=== PATIENT | male | born 1965 | race Caucasian/White ===

== ENCOUNTER 2016-10-09 14:58 | Inpatient (IN) | payer MEDICARE ==
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
[2016-10-09 17:09] LABS: % BASOPHILS 0.5 % (0.0-2.0); % EOSINOPHILS 2.7 % (0.0-5.0); % LYMPHOCYTES 38.7 % (20.0-50.0); % MONOCYTES 12.3 % (2.0-10.0); % NEUTROPHILS 45.8 % (40.0-80.0); HEMATOCRIT 43.6 % (39.0-49.0); HEMOGLOBIN 14.5 gm/dL (13.2-17.3); MEAN CELL VOLUME 88.3 fl (80-99); MEAN CORPUSCULAR HEMOGLOBIN 29.3 pg (26.0-30.0); MEAN CORPUSCULAR HGB CONC 33.2 pg (28.0-36.0); MEAN PLATELET VOLUME 8.2 fl; PLATELET COUNT 193 Th/cmm (150-400); RED BLOOD COUNT 4.94 Mil/cmm (4.30-5.70); RED CELL DISTRIBUTION WIDTH 12.2 % (11.5-20.0); WHITE BLOOD COUNT 8.6 Th/cmm (4.8-10.8)
[2016-10-09 17:28] LABS: ACETAMINOPHEN < 10.0 ug/mL (10.0-30.0); ALB/GLOB RATIO 1.4 (1.0-1.8); ALKALINE PHOSPHATASE 146 U/L (34-104); ANION GAP 9.2 (7.0-16.0); BILIRUBIN,TOTAL 0.5 mg/dL (0.3-1.0); BUN - UREA NITROGEN 9 mg/dL (7-25); CALCIUM SERUM 9.5 mg/dL (8.6-10.3); CARBON DIOXIDE 30.8 mEq/L (21.0-31.0); CHLORIDE 100 mEq/L (98-107); CHOLESTEROL 139 mg/dL (<200); CREATININE - SERUM 0.5 mg/dL (0.7-1.3); GLUCOSE 180 mg/dL (70-105); SGOT 55 U/L (13-39); SGPT/ALT 64 U/L (7-52); SODIUM SERUM 136 mEq/L (136-145); TRIGLYCERIDES 237 mg/dL (<150)
[2016-10-09 18:08] LABS: URINE BILIRUBIN NEGATIVE (NEGATIVE); URINE BLOOD NEGATIVE (NEGATIVE); URINE GLUCOSE (UA) 100 mg/dL (NEGATIVE); URINE KETONE NEGATIVE (NEGATIVE); URINE PH 6.5 (4.6 - 8.0); URINE PROTEIN NEGATIVE (NEGATIVE); URINE UROBILINOGEN 0.2 E.U./dL (0.2 - 1.0)
[2016-10-09 18:10] LABS: URINE COLOR YELLOW
[2016-10-09 18:11] LABS: URINE BACTERIA NONE SEEN /hpf (NONE SEEN); URINE EPITHELIAL CELLS NONE SEEN /lpf (FEW); URINE RBC NONE SEEN /hpf (0-5); URINE WBC NONE SEEN /hpf (0-5)
[2016-10-09 18:16] LABS: AMPHETAMINE URINE NEGATIVE (NEGATIVE); BARBITURATES URINE NEGATIVE (NEGATIVE); METHADONE URINE NEGATIVE (NEGATIVE)
[2016-10-09 20:07] VITALS: BP 118/85
[2016-10-09] MEDS ORDERED: Fleet Enema 135 mL RC PRN (20:56)
[2016-10-09] MEDS ORDERED: SIMETHICONE 40 MG/0.6 ML BOTTLE PO PRN (20:56)
[2016-10-09] MEDS ORDERED: Hydrocodone/APAP 5mg/325mg Tab PO PRN (20:56)
[2016-10-10] MEDS: Atorvastatin Calcium 10 MG TAB PO SCH ×2 (05:55→21:21)
[2016-10-10] MEDS: INSULIN ASPART, RECOMBINANT 100 UNITS/ML SUBQ SCH ×4 (06:43→21:27)
[2016-10-10] MEDS: INSULIN HUMAN ISOPHANE (NPH) 100 UNITS/ML SUBQ SCH ×2 (08:36→17:28)
[2016-10-10] MEDS: Pantoprazole 40 mg EC Tab PO SCH (08:38)
[2016-10-10] MEDS: Levothyroxine 0.075 Mg Tab PO SCH (08:38)
[2016-10-10] MEDS: Aspirin 81mg Chewable Tab PO SCH (08:39)
[2016-10-10] MEDS ORDERED: INSULIN HUMAN ISOPHANE (NPH) 100 UNITS/ML SUBQ SCH (09:00)
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
[2016-10-11] MEDS: INSULIN HUMAN ISOPHANE (NPH) 100 UNITS/ML SUBQ SCH ×2 (06:39→17:40)
[2016-10-11] MEDS: INSULIN ASPART, RECOMBINANT 100 UNITS/ML SUBQ SCH ×4 (06:39→21:54)
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
[2016-10-11] MEDS: Pantoprazole 40 mg EC Tab PO SCH (09:04)
[2016-10-11] MEDS: Aspirin 81mg Chewable Tab PO SCH (09:04)
[2016-10-11] MEDS: Levothyroxine 0.075 Mg Tab PO SCH (09:07)
--- NOTE | 2016-10-11 19:30 | Progress Notes ---
DATE: 10/11/2016 SUBJECTIVE: Staff was spoken to. The patient is interviewed. Mood is noted to be depressed. Affect is constricted. The patient is isolative and withdrawn. Insight and judgment are noted to be still impaired. Coping skills are noted to be poor. The patient's main concern at this time is noted to be shaking of the legs and then pain. ASSESSMENT: The patient is still depressed. PLAN: To continue the patient with Cymbalta and follow the patient with supportive therapy. JOB# [id number]
[2016-10-11] MEDS: Atorvastatin Calcium 10 MG TAB PO SCH (21:06)
[2016-10-12] MEDS: INSULIN ASPART, RECOMBINANT 100 UNITS/ML SUBQ SCH ×4 (07:07→21:05)
[2016-10-12] MEDS: INSULIN HUMAN ISOPHANE (NPH) 100 UNITS/ML SUBQ SCH ×2 (07:12→18:04)
[2016-10-12] MEDS: Levothyroxine 0.075 Mg Tab PO SCH (09:10)
[2016-10-12] MEDS: Aspirin 81mg Chewable Tab PO SCH (09:11)
[2016-10-12] MEDS: Pantoprazole 40 mg EC Tab PO SCH (09:11)
[2016-10-12] MEDS: Menthol/Zinc Oxide Oint 113gm Tube TP PRN (09:11)
[2016-10-12] MEDS: Atorvastatin Calcium 10 MG TAB PO SCH (21:08)
--- NOTE | 2016-10-12 21:22 | Progress Notes ---
DATE: 10/12/2016 TIME PATIENT SEEN: 12:30 p.m. SUBJECTIVE: Staff was spoken to. The patient is interviewed. Mood is noted to be irritable. Affect is constricted. The patient is demanding more and more pain medications. Insight and judgment at this time are noted to be still impaired. Impulse control seems to be poor. The patient is currently on duloxetine 60 mg on a daily basis and has been able to tolerate the medications. The patient is also on Seroquel 300 mg at night time. Since the patient has been still having hallucinations and mood swings, it is decided to increase the dose on the Seroquel to 400 mg at night time and I encouraged the patient to verbalize the concerns rather than to act out . JOB# [id number]
[2016-10-13] MEDS: INSULIN ASPART, RECOMBINANT 100 UNITS/ML SUBQ SCH ×4 (06:41→20:44)
[2016-10-13] MEDS: Aspirin 81mg Chewable Tab PO SCH (10:16)
[2016-10-13] MEDS: Pantoprazole 40 mg EC Tab PO SCH (10:25)
[2016-10-13] MEDS: INSULIN HUMAN ISOPHANE (NPH) 100 UNITS/ML SUBQ SCH ×2 (10:28→17:28)
[2016-10-13] MEDS: Levothyroxine 0.075 Mg Tab PO SCH (10:35)
[2016-10-13] MEDS ORDERED: Hydrocodone/APAP 5mg/325mg Tab PO PRN (11:55)
[2016-10-13] MEDS: Atorvastatin Calcium 10 MG TAB PO SCH (20:49)
--- NOTE | 2016-10-13 21:20 | Progress Notes ---
DATE: 10/13/2016 SUBJECTIVE: Staff was spoken to. The patient is interviewed. Mood is noted to be irritable. Affect is constricted. The patient has been going a tangent and is mentioning that he has climbed , and the patient is going on and on. Insight and judgment at this time are noted to be still impaired. Impulse control seems to be limited. Coping skills are also noted to be limited. The patient has been having acute mood swings and the patient is mainly focused on too much on the pain medications. ASSESSMENT: The patient is still having acute mood swings and planning to increase the dose on the Depakote to 250 mg 3 times a day and give the Depakote level tomorrow and follow the patient up. Please note that the patient has no place to return to at this time. JOB# [id number]
[2016-10-14] MEDS: INSULIN ASPART, RECOMBINANT 100 UNITS/ML SUBQ SCH ×4 (06:56→21:00)
[2016-10-14] MEDS: Pantoprazole 40 mg EC Tab PO SCH (09:38)
[2016-10-14] MEDS: Aspirin 81mg Chewable Tab PO SCH (09:39)
[2016-10-14] MEDS: INSULIN HUMAN ISOPHANE (NPH) 100 UNITS/ML SUBQ SCH ×2 (09:49→17:55)
[2016-10-14] MEDS: Levothyroxine 0.075 Mg Tab PO SCH (17:03)
[2016-10-14] MEDS: Atorvastatin Calcium 10 MG TAB PO SCH (21:00)
[2016-10-14] MEDS: Menthol/Zinc Oxide Oint 113gm Tube TP PRN (23:00)
--- NOTE | 2016-10-15 03:26 | Progress Notes ---
DATE: 10/14/2016 PSYCHIATRIC PROGRESS NOTE SUBJECTIVE: Staff was spoken to. The patient is interviewed. Mood is noted to be irritable. Affect is constricted. The patient is still complaining of pain and inability to walk. The patient is currently on hydrocodone as well as the hydromorphone and the patient has been still insisting that camping and legs are hurting. The patient's insight and judgment at this time are noted to be still impaired. The patient has been sleeping most of the time and the patient has been having difficult time to get up. The patient's mood is noted to be still depressed. ASSESSMENT: The patient is still depressed. PLAN: To continue patient with the supportive therapy, encouraged the patient to verbalize the concerns rather than to act out. JOB# [id number]
[2016-10-15] MEDS: INSULIN ASPART, RECOMBINANT 100 UNITS/ML SUBQ SCH ×4 (06:33→21:40)
[2016-10-15] MEDS: INSULIN HUMAN ISOPHANE (NPH) 100 UNITS/ML SUBQ SCH (07:06)
[2016-10-15] MEDS: Pantoprazole 40 mg EC Tab PO SCH (10:29)
[2016-10-15] MEDS: Levothyroxine 0.075 Mg Tab PO SCH (10:31)
[2016-10-15] MEDS: Aspirin 81mg Chewable Tab PO SCH (10:32)
[2016-10-15] MEDS: Atorvastatin Calcium 10 MG TAB PO SCH (20:36)
--- NOTE | 2016-10-16 01:16 | Progress Notes ---
DATE: 10/15/2016 PSYCHIATRIC PROGRESS NOTE SUBJECTIVE: Staff was spoken to. The patient is interviewed. Mood is noted to be irritable. Affect is constricted. The patient is stating that he needs to be on a higher dose of pain medication. The patient has been isolative and withdrawn at this time. No side effects to the medications are noted. The patient is currently on Cymbalta and has been able to tolerate the medication. ASSESSMENT: The patient is still depressed. PLAN: To continue the patient with the supportive therapy. I encouraged the patient to verbalize the concerns rather than to act out. JOB# [id number]
[2016-10-16] MEDS: INSULIN HUMAN ISOPHANE (NPH) 100 UNITS/ML SUBQ SCH ×2 (06:32→19:37)
[2016-10-16] MEDS: Levothyroxine 0.075 Mg Tab PO SCH (09:53)
[2016-10-16] MEDS: Pantoprazole 40 mg EC Tab PO SCH (09:54)
[2016-10-16] MEDS: Aspirin 81mg Chewable Tab PO SCH (09:54)
[2016-10-16] MEDS: INSULIN ASPART, RECOMBINANT 100 UNITS/ML SUBQ SCH ×3 (14:40→20:32)
[2016-10-16] MEDS: Atorvastatin Calcium 10 MG TAB PO SCH (20:29)
--- NOTE | 2016-10-17 05:52 | Progress Notes ---
DATE: 10/16/2016 SUBJECTIVE: Staff was spoken to. The patient is interviewed. Mood is noted to be irritable. Affect is constricted. The patient is stating that being here in a noisy environment he has been having too much of anxiety. The patient is stating that he needs to be on his anxiety medication. The patient is currently getting the Seroquel 400 mg at bedtime, trazodone 100 mg at bedtime, and the patient is also on lorazepam 0.5 mg every 6 hours p.r.n. The patient is mainly focused on his pain medications, which has been hydromorphone, that is Dilaudid; he is getting 4 mg every 8 hours on a p.r.n. basis and hydrocodone, that is the [place] 1 every 8 hours. The patient's insight and judgment are noted to be still impaired. Impulse control seems to be poor. Coping skills are noted to be poor. No side effects of the medications are noted. The patient has a tendency to talk ____ and he gets fixated ____ things and then he goes into so much of detail. In view of the acute mood swings, it is decided to increase the Depakote to 500 mg twice a day and follow the patient with the supportive therapy. JOB# [id number]
[2016-10-17] MEDS: INSULIN ASPART, RECOMBINANT 100 UNITS/ML SUBQ SCH ×4 (06:34→21:55)
[2016-10-17] MEDS: INSULIN HUMAN ISOPHANE (NPH) 100 UNITS/ML SUBQ SCH ×2 (06:43→16:32)
[2016-10-17] MEDS: Pantoprazole 40 mg EC Tab PO SCH (08:21)
[2016-10-17] MEDS: Levothyroxine 0.075 Mg Tab PO SCH (08:25)
[2016-10-17] MEDS: Aspirin 81mg Chewable Tab PO SCH (08:26)
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
--- NOTE | 2016-10-17 21:32 | Progress Notes ---
DATE: 10/17/2016 SUBJECTIVE: Staff was spoken to. The patient is interviewed. Mood is noted to be irritable. Affect is constricted. The patient is stating that he has been having a lot of anxiety regular dose of Ativan. Insight and judgment are noted to be still impaired. The patient is not in any acute distress. The patient is currently on [place], as well as Dilaudid and has been asking for more medications. ASSESSMENT: The patient is still having mood swings. PLAN: To continue the patient with supportive therapy. I encouraged the patient to verbalize the concerns rather than to act out. JOB# [id number]
[2016-10-17] MEDS: Atorvastatin Calcium 10 MG TAB PO SCH (21:55)
[2016-10-18] MEDS: INSULIN HUMAN ISOPHANE (NPH) 100 UNITS/ML SUBQ SCH (07:02)
[2016-10-18] MEDS: INSULIN ASPART, RECOMBINANT 100 UNITS/ML SUBQ SCH (07:03)
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
[2016-10-18] MEDS: Aspirin 81mg Chewable Tab PO SCH (10:08)
[2016-10-18] MEDS: Pantoprazole 40 mg EC Tab PO SCH (10:10)
[2016-10-18] MEDS: Levothyroxine 0.075 Mg Tab PO SCH (10:11)
== END 2016-10-18 10:50 | DRG 885 ==
LOC: ER 14:58 → GERO 18:25
PROVIDERS: ADMIT Psychiatry & Neurology Psychiatry; ATTEND Psychiatry & Neurology Psychiatry
DX: F29 Unspecified psychosis not due to a substance or known physiological condition (principal); G82.20 Paraplegia, unspecified; E11.40 Type 2 diabetes mellitus with diabetic neuropathy, unspecified; Z66 Do not resuscitate; G89.4 Chronic pain syndrome; E78.5 Hyperlipidemia, unspecified; F20.0 Paranoid schizophrenia; E03.9 Hypothyroidism, unspecified; K21.9 Gastro-esophageal reflux disease without esophagitis; F32.9 Major depressive disorder, single episode, unspecified; Z83.3 Family history of diabetes mellitus; Z82.49 Family history of ischemic heart disease and other diseases of the circulatory system; Z79.4 Long term (current) use of insulin
CPT/HCPCS: 36415-UA; 80053-TC; 80061-TC; 80164-TC; 80307; 80320-TC; 80329-TC; 81001-TC; 82948-90; 83036-90; 84443-TC; 85025-TC; 86592-TC; 93005; J1815; Q0162; Z7610

== ENCOUNTER 2017-04-08 18:39 | Inpatient (IN) | payer MEDICARE, MEDICAID ==
[2017-04-08 20:17] LABS: % BASOPHILS 0.1 % (0.0-2.0); % EOSINOPHILS 1.7 % (0.0-5.0); % LYMPHOCYTES 35.7 % (20.0-50.0); % MONOCYTES 8.3 % (2.0-10.0); % NEUTROPHILS 54.2 % (40.0-80.0); EOSINOPHILE ABSOLUTE 0.2 Th/cmm (0.1-0.4); HEMATOCRIT 46.1 % (41.0-60); HEMOGLOBIN 15.3 gm/dL (12-16); LYMPHOCYTE ABSOLUTE 3.2 Th/cmm (1.5-3.0); MEAN CELL VOLUME 89.3 fl (80-99); MEAN CORPUSCULAR HEMOGLOBIN 29.7 pg (26.0-30.0); MEAN CORPUSCULAR HGB CONC 33.3 pg (28.0-36.0); MEAN PLATELET VOLUME 8.1 fl; MONOCYTE ABSOLUTE 0.8 Th/cmm (0.3-1.0); NEUTROPHILE ABSOLUTE 4.9 Th/cmm (1.8-8.0); PLATELET COUNT 201 Th/cmm (150-400); RED BLOOD COUNT 5.16 Mil/cmm (4.30-5.70); RED CELL DISTRIBUTION WIDTH 12.6 % (11.5-20.0); WHITE BLOOD COUNT 9.1 Th/cmm (4.8-10.8)
[2017-04-08 20:31] LABS: ANION GAP 14.3 (7.0-16.0); BUN - UREA NITROGEN 13 mg/dL (7-25); CARBON DIOXIDE 25.8 mEq/L (21.0-31.0); CHLORIDE 100 mEq/L (98-107); CREATININE - SERUM 0.6 mg/dL (0.7-1.3); GFR AFRICAN-AMERICAN > 60.0 ml/min (>90); GFR NON AFRICAN-AMERICAN > 60.0 ml/min; GLUCOSE 158 mg/dL (70-105); POTASSIUM SERUM 4.1 mEq/L (3.5-5.1); SODIUM SERUM 136 mEq/L (136-145)
[2017-04-08 21:06] LABS: URINE MICROSCOPIC INDICATED? YES; URINE SOURCE RANDOM
[2017-04-08 21:13] LABS: URINE BILIRUBIN NEGATIVE (NEGATIVE); URINE BLOOD NEGATIVE (NEGATIVE); URINE GLUCOSE (UA) NEGATIVE (NEGATIVE); URINE KETONE 15 mg/dL (NEGATIVE); URINE LEUKOCYTE ESTERASE MODERATE (NEGATIVE); URINE NITRATE POSITIVE (NEGATIVE); URINE PROTEIN NEGATIVE (NEGATIVE); URINE UROBILINOGEN 0.2 E.U./dL (0.2 - 1.0)
[2017-04-08 21:23] LABS: URINE CLARITY CLOUDY (CLEAR); URINE COLOR YELLOW
[2017-04-08 21:26] VITALS: BP 142/74
[2017-04-08 21:37] LABS: URINE BACTERIA MODERATE /hpf (NONE SEEN); URINE EPITHELIAL CELLS FEW /lpf (FEW); URINE WBC 25-50 /hpf (0-5)
[2017-04-08] MEDS ORDERED: Maalox 30 mL Cup PO PRN (21:40)
[2017-04-08] MEDS ORDERED: Fluticasone Propionate 0.05mg/Actuation 16gm Nasal Spray NS PRN (23:12)
[2017-04-09] MEDS: Aspirin 81mg Chewable Tab PO SCH (08:42)
[2017-04-09] MEDS ORDERED: Non-Formulary Item 1 EA (Cranberry [Cranberry] 450 MG) PO SCH (09:00)
[2017-04-09] MEDS ORDERED: Hydrocodone/APAP 5mg/325mg Tab PO PRN (09:22)
[2017-04-09] MEDS ORDERED: Magnesium Hydroxide (MOM) 30 mL UDC PO PRN (09:22)
[2017-04-09] MEDS ORDERED: Albuterol Nebulizer 2.5mg/3mL HHN SCH (09:30)
[2017-04-09] MEDS ORDERED: Budesonide 0.5 Mg/2 mL Ud HHN SCH (10:30)
[2017-04-09] MEDS: INSULIN ASPART SLIDING SCALE 100 UNITS/ML UNIT SUBQ SCH ×3 (11:38→21:47)
[2017-04-09] MEDS ORDERED: Probiotic Screen MC PRN (15:05)
[2017-04-09] MEDS: Levothyroxine 0.075 Mg Tab PO SCH (15:46)
[2017-04-09] MEDS: Pantoprazole 40 mg EC Tab PO SCH (15:47)
[2017-04-09] MEDS: Multivitamin Tab PO SCH (15:47)
[2017-04-09] MEDS: INSULIN HUMAN ISOPHANE (NPH) 100 UNITS/ML SUBQ SCH (16:45)
--- NOTE | 2017-04-10 03:31 | Psychosocial Evaluation ---
DATE OF SERVICE: 04/08/2017 IDENTIFYING DATA: The patient is a 52-year-old male, resident of the [facility]. Information obtained by directly interviewing the patient as well as reviewing the admission papers. JUSTIFICATION FOR HOSPITALIZATION: The patient has been admitted over here on a voluntary basis in view of his agitation and frustration and mood swings. CHIEF COMPLAINT: "I don't understand why they have to bring me in here." HISTORY OF PRESENT ILLNESS: This is the second psychiatric hospitalization for this patient who had been seen by me during the previous hospitalization. The patient is reported to have been getting easily frustrated with the pain and has been reported to have been losing the temper and in view of his agitation and aggressive behavior, the patient has been brought over here for stabilization. Chart has been reviewed and the patient is interviewed. Staff was spoken to. The patient is reported to have been previously seemed to be very needy and has been worsening for one thing or the other. The patient is stating that he needs to have his ____ relaxant and is also on Dilaudid as needed. The patient has been stating that he was on the gabapentin that was taken away and he is not very sure whether he has been taking the Depakote. The patient is stating that at this time. He needs to be on the Lyrica. The patient's sleep and appetite prior to the hospitalization are reported to be poor. The patient is stating that he is constantly in pain and need some relief. PAST PSYCHIATRIC HISTORY: Please refer to the above. MEDICAL HISTORY: Requested by Dr. Walters. SUBSTANCE ABUSE HISTORY: None. PHYSICAL OR SEXUAL ABUSE HISTORY: None. LEGAL PROBLEMS: None at this time. STRENGTH AND ASSETS: The patient is motivated. MENTAL STATUS EXAMINATION: The patient is a 52-year-old morbidly obese, superficially cooperative. Eye contact is fair. Mood is irritable. Affect is constricted. Insight and judgment at this time are noted to be impaired. Impulse control seems to be limited. The patient has been focused on the pain medications. The patient is getting easily frustrated. The patient has been denying any auditory hallucinations or delusions are noted at this time, but patient has been coming with a lot of the pain complaints. The patient is not suicidal or homicidal, but impulse control is noted to be poor. The patient is alert and oriented x 3. Short and long-term are noted to be intact. DIAGNOSTIC IMPRESSION: AXIS I: 1A. Bipolar disorder, mixed. 1B. Rule out schizoaffective disorder. AXIS II: None. AXIS III: As per Dr. Walters. IMMEDIATE TREATMENT PLAN: The patient is going to be continued with the current medications and provided supportive psychotherapy. The patient is going to be continued on the Seroquel, gabapentin and Lyrica. Estimated length of stay 3-5 days. DISCHARGE CRITERIA: When he no longer a threat to self or others and be able to cope up with the stress. JOB# [id number]
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
[2017-04-10] MEDS: INSULIN HUMAN ISOPHANE (NPH) 100 UNITS/ML SUBQ SCH ×2 (07:17→17:56)
[2017-04-10] MEDS: Lactobacillus Rhamnosus GG 15 Billion CFU CAP.SPRINK PO SCH (08:49)
[2017-04-10] MEDS: Aspirin 81mg Chewable Tab PO SCH (08:51)
[2017-04-10] MEDS: Multivitamin Tab PO SCH (08:51)
[2017-04-10] MEDS: INSULIN ASPART SLIDING SCALE 100 UNITS/ML UNIT SUBQ SCH ×3 (11:52→23:08)
--- NOTE | 2017-04-10 17:13 | Progress Notes ---
DATE: 04/10/2017 PSYCHIATRIC PROGRESS NOTE SUBJECTIVE: Staff was spoken to. The patient is interviewed. Mood is irritable. Affect is constricted. Insight and judgment are noted to be still impaired. Impulse control seems to be poor. Coping skills are noted to be very poor. The patient has been still getting frustrated and stating that he is not getting adequate pain relief even though he is on the Dilaudid and all the medications. The patient has been getting easily upset. The patient's coping skills at this time are noted to be very poor. The patient is placed on the duloxetine 60 mg and the patient has been also placed on 300 mg of the Seroquel and has been able to tolerate the medication. PLAN: To continue the patient with the supportive therapy. I encouraged the patient to verbalize the concerns rather than to act out. JOB# [id number]
[2017-04-11] MEDS: INSULIN ASPART SLIDING SCALE 100 UNITS/ML UNIT SUBQ SCH ×4 (06:30→21:30)
[2017-04-11] MEDS: INSULIN HUMAN ISOPHANE (NPH) 100 UNITS/ML SUBQ SCH ×2 (07:05→17:37)
[2017-04-11] MEDS: Pantoprazole 40 mg EC Tab PO SCH (07:09)
[2017-04-11] MEDS: Levothyroxine 0.075 Mg Tab PO SCH (07:09)
[2017-04-11] MEDS: Multivitamin Tab PO SCH (08:53)
[2017-04-11] MEDS: Lactobacillus Rhamnosus GG 15 Billion CFU CAP.SPRINK PO SCH (08:53)
[2017-04-11] MEDS: Aspirin 81mg Chewable Tab PO SCH (08:54)
--- NOTE | 2017-04-12 01:33 | Progress Notes ---
DATE: 04/11/2017 SUBJECTIVE: Staff was spoken to. The patient is interviewed. Mood is noted to be irritable. Affect is constricted. The patient's insight is noted to be still impaired. Impulse control seems to be limited. The patient is stating that he should be on 1.5 mg of the Ativan every 4 hours. The patient has been very demanding. The patient has no insight into his illness. ASSESSMENT: The patient is still psychotic and impulsive. PLAN: To continue the patient with the current medications and follow. JOB# [id number]
[2017-04-12] MEDS: INSULIN ASPART SLIDING SCALE 100 UNITS/ML UNIT SUBQ SCH ×4 (06:55→21:57)
[2017-04-12] MEDS: Lactobacillus Rhamnosus GG 15 Billion CFU CAP.SPRINK PO SCH (08:29)
[2017-04-12] MEDS: Multivitamin Tab PO SCH (08:29)
[2017-04-12] MEDS: Aspirin 81mg Chewable Tab PO SCH (08:30)
[2017-04-12] MEDS: INSULIN HUMAN ISOPHANE (NPH) 100 UNITS/ML SUBQ SCH (17:30)
--- NOTE | 2017-04-12 18:11 | Progress Notes ---
DATE: 04/12/2017 SUBJECTIVE: Staff was spoken to. The patient is interviewed. Mood is noted to be irritable. Affect is constricted. Insight and judgment at this time are noted to be very much impaired. Impulse control is poor. The patient is stating that he was taking 1.5 mg 3 times a day of the Ativan. Review of the chart indicates that the patient has been taking only 0.5 mg. The patient wants higher dose of the Dilaudid and the Ativan. The patient has not been presenting with any threats to harm self or others and has been demanding high dose of the benzos as well as the pain medications. The patient is also threatening that he is going to be signing out AMA and the corrections caseworker has been contacted and to be in touch with the facility to see if we can discharge the patient back to the facility. JOB# [id number]
[2017-04-13] MEDS: Pantoprazole 40 mg EC Tab PO SCH (06:59)
[2017-04-13] MEDS: Levothyroxine 0.075 Mg Tab PO SCH (06:59)
[2017-04-13] MEDS: INSULIN ASPART SLIDING SCALE 100 UNITS/ML UNIT SUBQ SCH (07:00)
[2017-04-13] MEDS: INSULIN HUMAN ISOPHANE (NPH) 100 UNITS/ML SUBQ SCH (07:02)
[2017-04-13] MEDS: Aspirin 81mg Chewable Tab PO SCH (09:25)
[2017-04-13] MEDS: Lactobacillus Rhamnosus GG 15 Billion CFU CAP.SPRINK PO SCH (09:26)
[2017-04-13] MEDS: Multivitamin Tab PO SCH (09:26)
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
--- NOTE | 2017-06-11 12:56 | ER Physician Documentation ---
DATE OF SERVICE: 04/08/2017 HISTORY: This patient presented with agitation. He has a past history of bipolar disorder and he was presented to the ER to be evaluated for medical clearance before going to the psychiatric unit. Physical exam revealed the patient that had positive psychomotor agitation, no suicidal ideations. Mood and affect were labile. Laboratory data was unremarkable; thus, the patient was medically cleared for a psych admission. DIAGNOSES: Psychosis, agitation, bipolar disorder, and medical clearance. JOB# [id number]
== END 2017-04-13 09:25 | disposition home or self-care (01) | DRG 885 ==
LOC: ER 18:39 → GERO 20:52
PROVIDERS: ADMIT Psychiatry & Neurology Psychiatry; ATTEND Psychiatry & Neurology Psychiatry
DX: F31.60 Bipolar disorder, current episode mixed, unspecified (principal); E11.42 Type 2 diabetes mellitus with diabetic polyneuropathy; G82.20 Paraplegia, unspecified; N39.0 Urinary tract infection, site not specified; E78.5 Hyperlipidemia, unspecified; E03.9 Hypothyroidism, unspecified; K21.9 Gastro-esophageal reflux disease without esophagitis; G89.4 Chronic pain syndrome; F29 Unspecified psychosis not due to a substance or known physiological condition; M54.9 Dorsalgia, unspecified; E66.01 Morbid (severe) obesity due to excess calories; Z68.35 Body mass index [BMI] 35.0-35.9, adult
CPT/HCPCS: 36415-UA; 80048-TC; 81001-TC; 82948-90; 84443-TC; 85025-TC; 86592-TC; 87086-90; 93005; J1815; J7613; Q0162; Z7610